=== PATIENT | male | born 1980 | race Caucasian/White ===

== ENCOUNTER → 2016-10-05 | Outpatient (CLI) | payer BC ==
[~2016-10-05] MED LIST: HYDR-3812 PO; LORA10TA76 PO
--- NOTE | 2016-10-05 19:38 | Diagnostic Imaging Report ---
Ultrasound of the left upper back. INDICATION: Left upper back lump. FINDINGS: The area of lump demonstrates 2.0 x 1.0 x 1.9 cm solid mass that is centered along the subcutaneous tissues. It could be arising from the deep layers of the skin or the subcutaneous tissue. It has well-defined margins. No fluid or cystic component. IMPRESSION: 2 cm solid mass in the subcutaneous tissues remains indeterminate. Neoplastic etiology is not excluded. The provided history suggests chronicity and progressive enlargement. Neoplastic etiology not excluded. Ultrasound-guided or excisional biopsy is suggested. Dictated by: Dictated on workstation # [id number]
== END ==
LOC: RAD 14:45
PROVIDERS: ATTEND Nurse Practitioner Family
DX: R22.2 Localized swelling, mass and lump, trunk (principal)
CPT/HCPCS: 76536

== ENCOUNTER → 2016-11-08 | Outpatient (CLI) | payer BC ==
[~2016-11-08] VITALS: Ht 205.7 cm; Wt 106.6 kg
== END ==
LOC: PREOP 05:35
PROVIDERS: ATTEND Surgery
DX: Z01.818 Encounter for other preprocedural examination (principal); L72.9 Follicular cyst of the skin and subcutaneous tissue, unspecified

== ENCOUNTER 2016-11-12 05:56 | Day surgery (SDC) | payer BC ==
[~2016-11-12] VITALS: Ht 205.7 cm; Wt 106.6 kg
[~2016-11-12 05:56] MED LIST changes: -HYDR-3812 PO
[2016-11-12] MEDS ORDERED: LACTATED RINGERS 1,000 ML IV PRN (06:29)
[2016-11-12] MEDS ORDERED: ceFAZolin 2 GM/NS 50 ML IV ONE (07:00)
[2016-11-12] MEDS ORDERED: BUP/EPI 0.25% 1:200,000 (MARCAINE) 30 ML VIAL ONE (07:08)
[2016-11-12 07:15] VITALS: BP 135/89
[2016-11-12] MEDS ORDERED: DEXAMETHASONE PF 10 MG/ML (DECADRON) VIAL ONE (07:18)
[2016-11-12] MEDS ORDERED: LIDOCAINE PF 2% 10 ML (XYLOCAINE) AMP ONE (07:18)
[2016-11-12] MEDS ORDERED: MIDAZOLAM 2 MG/2 ML (VERSED) VIAL ONE (07:18)
[2016-11-12] MEDS ORDERED: SEVOFLURANE (ULTANE) 15 ML INHAL SOLN ONE (07:18)
[2016-11-12] MEDS ORDERED: LACTATED RINGERS 1,000 ML IV ONE (07:18)
[2016-11-12] MEDS ORDERED: ONDANSETRON 4 MG/2 ML (SDV) Z0FRAN ONE (07:18)
[2016-11-12] MEDS ORDERED: fentaNYL INJECTION 250 MCG/5 ML AMP ONE (07:18)
[2016-11-12] MEDS ORDERED: proPOfol 200 MG/20 ML (DIPRIVAN) VIAL IV ONE (07:18)
--- NOTE | 2016-11-12 08:12 | Progress Note-Pre Operative ---
Pre-Operative Progress Note H&P Reviewed The H&P was reviewed, patient examined and no changes noted. Date H&P Reviewed: November 12, 2016 Time H&P Reviewed: 08:12 Pre-Operative Diagnosis: Lai.cust-left scapular region MIKAEL RUIZ MD November 12, 2016 8:12 am
[2016-11-12] MEDS ORDERED: HYDR-3812 PO (08:48)
--- NOTE | 2016-11-12 08:48 | Progress Note-Post Operative ---
Post-Operative Progess Note Surgeon (s)/Oven Worker (s) Surgeon MIKAEL RUIZ MD Oven Worker: not applicable Pre-Operative Diagnosis Lai.cust-left scapular region Post-Operative Diagnosis same Post-Op Procedure Note Date of Procedure: November 12, 2016 Name of Procedure Performed: eexcision Description of the Procedure: ssee operative report Findings of the Procedure see operative report Anesthesia Type Gen. Estimated blood loss (mL): mminimal Specimen(s) collected/removed sebaceous cyst MIKAEL RUIZ MD November 12, 2016 8:48 am
--- NOTE | 2016-11-12 08:49 | Discharge Inst-Simple/Standard ---
Discharge Inst-Standard Discharge Medications New, Converted or Re-Newed RX: RX on Chart Patient Instructions/Follow Up Plan of Care/Instructions/FU: dressings off in 48 hours. Follow-up with my nurse in 2 weeks for suture removal Activity as Tolerated: Yes Discharge Diet: No Restrictions MIKAEL RUIZ MD November 12, 2016 8:49 am
[2016-11-12] MEDS ORDERED: morphine INJ 10 MG/ML 1ML (SYR OR VIAL) IVP PRN (09:00)
[2016-11-12] MEDS ORDERED: MEPERIDINE (DEMEROL) INJ 50 MG/ML IVP PRN (09:00)
[2016-11-12] MEDS ORDERED: ONDANSETRON 4 MG/2 ML (SDV) Z0FRAN IVP PRN (09:00)
[2016-11-12 09:40] VITALS: BP 125/86
[2016-11-12 10:10] VITALS: BP 123/81
[2016-11-12 10:40] VITALS: BP 125/83
--- NOTE | 2016-11-12 18:06 | OPERATIVE REPORT ---
DATE OF SERVICE: 11/12/2016 PREOPERATIVE DIAGNOSIS: Sebaceous cyst - left scapular region. POSTOPERATIVE DIAGNOSIS: Sebaceous cyst - left scapular region. OPERATION: Excision. SURGEON: Dr. Mikael Ruiz. ANESTHESIA: General anesthesia. BLOOD LOSS: Minimal. FLUIDS: 800 mL of crystalloid. TYPE OF WOUND: Type 2 (clean contaminated wound). INDICATION FOR THE PROCEDURE: This gentleman presented with a sebaceous cyst over the left scapular region with early cellulitis. Following a brief course of oral antibiotics, he was offered excision under general anesthetic. Informed consent was obtained after reviewing the operative details and complications of postoperative hematoma, wound infection, and recurrence of the cyst. DESCRIPTION OF THE PROCEDURE: He was initially placed supine on the operating table and general anesthesia induced. Subsequently, he was placed in right lateral decubitus position, to optimize exposure of the involved region. A gram of Ancef was administered intravenously as prophylaxis against wound infection. After adequate antiseptic preparation, analgesia was established using 0.25% Marcaine with epinephrine. An elliptical incision about 4 cm long was made, and this was excised. Hemostasis was achieved using cautery, and the incision was closed using 3-0 PDS for the deepened layer and 5-0 nylon for skin, in a continuous fashion. He tolerated the procedure well, was extubated in the operating room and taken to the recovery room in a stable condition. [place], sponges, and instruments were correct at the end of the operation Job ID: [id number] DocumentID: [id number] Dictated Date: 11/12/2016 08:44:59 Welding Machine Operator Date: 11/12/2016 17:35:35 Dictated By: MIKAEL RUIZ MD
== END 2016-11-12 11:00 | disposition home or self-care (01) ==
LOC: SDC 05:56
PROVIDERS: ATTEND Surgery
DX: L72.3 Sebaceous cyst (principal)
CPT/HCPCS: 87081; 88304